=== PATIENT | male | born 1950 | race African-American/Black ===

== ENCOUNTER 2019-08-16 11:54 | Inpatient (IN) | payer OTHER ==
--- NOTE | 2019-08-16 14:05 | HP ---
CIWA Score Nausea/Vomitin-No Nausea/No Vomiting Muscle Tremors: 2 Anxiety: 3 Agitation: 4-Moderately Restless Paroxysmal Sweats: No Perspiration Orientation: 1-Uncertain about Date Tacttile Disturbances: 0-None Auditory Disturbances: 0-None Visual Disturbances: 0-None Headache: 0-None Present CIWA-Ar Total Score: 10 - Admission Criteria OASAS Guidelines: Admission for Medically Managed Detox: Requires at least one of the followin. CIWA greater than 12 2. Seizures within the past 24 hours 3. Delirium tremens within the past 24 hours 4. Hallucinations within the past 24 hours 5. Acute intervention needed for co occurring medical disorder 6. Acute intervention needed for co occurring psychiatric disorder 7. Severe withdrawal that cannot be handled at a lower level of care (continued vomiting, continued diarrhea, abnormal vital signs) requiring intravenous medication and/or fluids 8. Admission ROS [facility] Allergies/Adverse Reactions: Allergies Allergy/AdvReac Type Severity Reaction Status Date / Time No Known Allergies Allergy Verified 08/16/19 13:09 History of Present Illness: This report was requested by: Norma Curry | Reference #: [id number] Others' Prescriptions Patient Name: Mehrdad Harry Date: 1950 Address: [address] [place] [address] Sex: Male Rx Written Rx Dispensed Drug Quantity Days Supply Prescriber Name 07/31/2019 07/31/2019 oxycodone hcl 10 mg tablet 90 30 KapoorJamey weinberg MD 06/29/2019 06/29/2019 oxycodone hcl 10 mg tablet 90 30 KapoorJamey MD 05/27/2019 05/27/2019 oxycodone hcl 10 mg tablet 90 30 KapoorJamey MD 04/29/2019 04/29/2019 oxycodone hcl 10 mg tablet 90 30 KapoorJamey MD 03/30/2019 03/30/2019 oxycodone hcl 10 mg tablet 90 30 KapoorJamey MD 02/25/2019 03/16/2019 oxycodone hcl 10 mg tablet 90 30 KapoorJamey MD 01/28/2019 01/28/2019 oxycodone hcl 10 mg tablet 90 30 KapoorJamey MD 11/28/2018 11/28/2018 oxycodone hcl 10 mg tablet 90 30 Kapoor, Jamey MD 10/27/2018 10/27/2018 oxycodone hcl 10 mg tablet 90 30 Jamey Kapoor MD 09/29/2018 09/29/2018 oxycodone hcl 10 mg tablet 90 30 Jamey Kapoor MD 08/27/2018 08/27/2018 oxycodone hcl 10 mg tablet 90 30 Jamey Kapoor MD pt here requesting detox from etoh use , reports 2 pints/ day since age 17 , denies significant period of sobriety. denies seizures, blackouts, reports tremors . 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 Claims latest etoh use was this morning . States he went to [facility] for detox and was told no beds available and was referred to this facility. cocaine : 200 $ /day tobacco: 1 ppd pmhx : DM , htn, gout " can't you read ? it's in my record " Exam Limitations: Clinical Condition - Ebola screening Have you traveled outside of the country in the last 21 days: No (NN) Have you had contact with anyone from an Ebola affected area: No - Review of Systems Constitutional: No Symptoms Reported EENT: reports: No Symptoms Reported Respiratory: reports: No Symptoms reported Cardiac: reports: No Symptoms Reported GI: reports: Constipated, Diarrhea : reports: No Symptoms Reported Musculoskeletal: reports: No Symptoms Reported, Other (DENIES PAIN) Integumentary: reports: No Symptoms Reported Neuro: reports: No Symptoms reported Endocrine: reports: See HPI Psychiatric: reports: Orientated x3, Agitated, Anxious, other (beligerant , hostile) Patient History - Smoking Cessation Smoking history: Current every day smoker Have you smoked in the past 12 months: Yes Initiated information on smoking cessation: No - Substances abused Alcohol Substance route: Oral Frequency: Daily Amount used: 2 PINTS OF VODKA Age of first use: 17 Date of last use: 08/16/19 Barbiturate Substance route: Oral Frequency: Daily Amount used: 7- PILLS Age of first use: 17 Date of last use: 08/16/19 Marijuana/Hashish Substance route: Smoking Frequency: Daily Amount used: 1 JOINT Age of first use: 17 Date of last use: 08/14/19 Cocaine Substance route: Inhalation Frequency: Daily Amount used: 2 GRAMS Age of first use: 19 Date of last use: 08/16/19 Admission Physical Exam BHS - Vital Signs Vital Signs: Vital Signs - 24 hr 08/16/19 13:11 Temperature 99.4 F Pulse Rate 102 H Respiratory 18 Rate Blood Pressure 136/93 - Physical General Appearance: Yes: Irritable, Anxious HEENTM: Yes: EOMI, Hearing grossly Normal, Normocephalic, Normal Voice Respiratory: Yes: Chest Non-Tender, Lungs Clear, Normal Breath Sounds, No Respiratory Distress, No Accessory Muscle Use Neck: Yes: No masses,lesions,Nodules, Trachea in good position Cardiology: Yes: Regular Rhythm, Regular Rate, S1, S2 Abdominal: Yes: Non Tender, Soft Musculoskeletal: Yes: Gait Steady Extremities: Yes: Non-Tender, Tremors, Swelling (R hand - chronic intermittent ( gout )) Neurological: Yes: Alert, Motor Strength 5/5 Integumentary: Yes: Warm - Diagnostic (1) Alcohol abuse Current Visit: Yes Status: Chronic (2) Cocaine abuse Current Visit: Yes Status: Chronic (3) Nicotine dependence Current Visit: Yes Status: Chronic Qualifiers: Nicotine product type: cigarettes Breathalyzer - Breathalyzer Breathalyzer: 0 Urine Drug Screen - Test Device Lot number: [id number] Expiration date: 02/25/21 - Control Is test valid?: Yes - Results Drug screen NEGATIVE: No Urine drug screen results: [facility]-Cocaine Inpatient Rehab Admission - Rehab Decision to Admit Inpatient rehab admission?: No
[2019-08-16] MEDS ORDERED: MAG HYDROX/AL HYDROX/SIMETH 30 ML UNIT-DOSE CUP PO PRN (14:29)
[2019-08-16] MEDS ORDERED: ACETAMINOPHEN 325 MG TABLET (FP) PO PRN (14:29)
[2019-08-16] MEDS ORDERED: BISMUTH SUBSALICYLATE 524 MG/30 ML UD PO PRN (14:29)
[2019-08-16] MEDS ORDERED: IBUPROFEN 400 MG TABLET (FP) PO PRN (14:29)
[2019-08-16] MEDS ORDERED: MENTHOL/PHENOL 1 EACH UD MM PRN (14:29)
[2019-08-16] MEDS ORDERED: MAGNESIUM HYDROX 2400MG/30ML ORAL SUSPENSION 30 ML CUP PO PRN (14:29)
[2019-08-16] MEDS ORDERED: MAGNESIUM CITRATE 300 ML BOTTLE PO PRN (14:29)
[2019-08-16] MEDS ORDERED: hydrOXYzine PAMOATE 25 MG CAPSULE (FP) PO PRN (14:29)
[2019-08-16] MEDS ORDERED: diazePAM 5 MG TABLET PO PRN (14:33)
[2019-08-16 14:54] VITALS: BMI 26.7
[2019-08-16] MEDS: diazePAM 5 MG TABLET PO SCH ×2 (15:24→22:32)
[2019-08-16] MEDS: NICOTINE 14 MG/24 HOURS TOPICAL PATCH TD SCH (15:27)
[2019-08-16] MEDS: MELATONIN 5 MG TABLETS PO PRN (22:33)
[2019-08-16] MEDS: THIAMINE HCL 100 MG TABLET (FP) PO SCH (22:33)
[2019-08-17] MEDS: diazePAM 5 MG TABLET PO SCH ×3 (05:48→22:13)
[2019-08-17] MEDS: PRENATAL VITAMINS W/ FOLIC ACID TABLET (FP) PO SCH (10:24)
[2019-08-17] MEDS: COLCHICINE 0.6 MG CAP PO SCH (10:24)
[2019-08-17] MEDS: NICOTINE 14 MG/24 HOURS TOPICAL PATCH TD SCH (10:25)
[2019-08-17 12:32] LABS: HEMATOCRIT 36.8 % (35.4-49); HEMOGLOBIN 11.9 GM/dL (11.7-16.9); MCHC 32.3 g/dl (32.0-35.9); MEAN CELL VOLUME 92.9 fl (80-96); PLATELET COUNT 210 K/MM3 (134-434); RBC 3.96 M/mm3 (4.00-5.60); RDW 14.5 % (11.9-15.9); WHITE BLOOD COUNT 5.3 K/mm3 (4.0-10.0)
[2019-08-17 12:36] LABS: ALBUMIN 3.2 g/dl (3.4-5.0); BILIRUBIN,TOTAL 0.2 mg/dL (0.2-1); BLOOD UREA NITROGEN 12.3 mg/dL (7-18); CREATININE 1.2 mg/dL (0.55-1.3); POTASSIUM 3.7 mmol/L (3.5-5.1); TOT PROT 6.8 g/dl (6.4-8.2)
--- NOTE | 2019-08-17 12:47 | PN ---
[facility] CIWA - CIWA Score Nausea/Vomitin-Mild Nausea/No Vomiting Muscle Tremors: 3 Anxiety: 3 Agitation: 2 Paroxysmal Sweats: 2 Orientation: 0-Oriented Tacttile Disturbances: 0-None Auditory Disturbances: 0-None Visual Disturbances: 0-None Headache: 1-Very Mild CIWA-Ar Total Score: 12 S Progress Note (SOAP) Subjective: 68 years old male admitted on 08/16/19 for alcohol withdrawal sx management treating with valium detox regimen ate breakfast and lunch in day room social with peers in day room Objective: 08/17/19 12:49 Vital Signs Temperature 98.3 F 08/17/19 09:13 Pulse Rate 89 08/17/19 09:13 Respiratory Rate 18 08/17/19 09:13 Blood Pressure 121/73 08/17/19 09:13 O2 Sat by Pulse Oximetry (%) Laboratory Last Values WBC 5.3 K/mm3 (4.0-10.0) 08/17/19 07:25 RBC 3.96 M/mm3 (4.00-5.60) L 08/17/19 07:25 Hgb 11.9 GM/dL (11.7-16.9) 08/17/19 07:25 Hct 36.8 % (35.4-49) 08/17/19 07:25 MCV 92.9 fl (80-96) 08/17/19 07:25 MCH 30.0 pg (25.7-33.7) 08/17/19 07:25 MCHC 32.3 g/dl (32.0-35.9) 08/17/19 07:25 RDW 14.5 % (11.9-15.9) 08/17/19 07:25 Plt Count 210 K/MM3 (134-434) 08/17/19 07:25 MPV 9.0 fl (7.5-11.1) 08/17/19 07:25 Sodium 138 mmol/L (136-145) 08/17/19 07:25 Potassium 3.7 mmol/L (3.5-5.1) 08/17/19 07:25 Chloride 106 mmol/L (98-107) 08/17/19 07:25 Carbon Dioxide 28 mmol/L (21-32) 08/17/19 07:25 Anion Gap 5 MMOL/L (8-16) L 08/17/19 07:25 BUN 12.3 mg/dL (7-18) 08/17/19 07:25 Creatinine 1.2 mg/dL (0.55-1.3) 08/17/19 07:25 Est GFR (CKD-EPI)AfAm 72.09 08/17/19 07:25 Est GFR (CKD-EPI)NonAf 62.20 08/17/19 07:25 POC Glucometer 115 UNITS (80-120) 08/17/19 05:47 Random Glucose 150 mg/dL (74-106) H 08/17/19 07:25 Calcium 9.0 mg/dL (8.5-10.1) 08/17/19 07:25 Total Bilirubin 0.2 mg/dL (0.2-1) 08/17/19 07:25 AST 34 U/L (15-37) 08/17/19 07:25 ALT 30 U/L (13-61) 08/17/19 07:25 Alkaline Phosphatase 162 U/L (45-117) H 08/17/19 07:25 Total Protein 6.8 g/dl (6.4-8.2) 08/17/19 07:25 Albumin 3.2 g/dl (3.4-5.0) L 08/17/19 07:25 RPR Titer Nonreactive (NONREACTIVE) 08/17/19 07:25 lab noted Assessment: 08/17/19 12:49 alcohol withdrawal Plan: valium regimen
[2019-08-17] MEDS: THIAMINE HCL 100 MG TABLET (FP) PO SCH (22:13)
[2019-08-17] MEDS: MELATONIN 5 MG TABLETS PO PRN (22:13)
[2019-08-18] MEDS: ACETAMINOPHEN 325 MG TABLET (FP) PO PRN ×2 (05:46→17:33)
[2019-08-18] MEDS ORDERED: diazePAM 5 MG TABLET PO ONE (06:00)
[2019-08-18] MEDS: PRENATAL VITAMINS W/ FOLIC ACID TABLET (FP) PO SCH (10:05)
[2019-08-18] MEDS: COLCHICINE 0.6 MG CAP PO SCH (10:05)
[2019-08-18] MEDS: NICOTINE 14 MG/24 HOURS TOPICAL PATCH TD SCH (10:05)
[2019-08-18] MEDS ORDERED: diazePAM 5 MG TABLET PO PRN (10:23)
--- NOTE | 2019-08-18 10:32 | PN ---
S CIWA - CIWA Score Nausea/Vomitin-No Nausea/No Vomiting Muscle Tremors: 1-None Visible, but [place] Anxiety: 2 Agitation: 1-Slight > Activity Paroxysmal Sweats: 2 Orientation: 0-Oriented Tacttile Disturbances: 0-None Auditory Disturbances: 0-None Visual Disturbances: 0-None Headache: 1-Very Mild CIWA-Ar Total Score: 7 S Progress Note (SOAP) Subjective: 68 years old male admitted on 08/16/19 for alcohol withdrawal sx management treating with valium detox regiment feeling ok today ate breakfast resting in bed encourage to attend behavioral and psychosocial therapies groups and meetings while in detox Objective: 08/18/19 10:31 Vital Signs Temperature 98.4 F 08/18/19 09:20 Pulse Rate 61 08/18/19 09:20 Respiratory Rate 16 08/18/19 09:20 Blood Pressure 135/79 08/18/19 09:20 O2 Sat by Pulse Oximetry (%) Laboratory Last Values WBC 5.3 K/mm3 (4.0-10.0) 08/17/19 07:25 RBC 3.96 M/mm3 (4.00-5.60) L 08/17/19 07:25 Hgb 11.9 GM/dL (11.7-16.9) 08/17/19 07:25 Hct 36.8 % (35.4-49) 08/17/19 07:25 MCV 92.9 fl (80-96) 08/17/19 07:25 MCH 30.0 pg (25.7-33.7) 08/17/19 07:25 MCHC 32.3 g/dl (32.0-35.9) 08/17/19 07:25 RDW 14.5 % (11.9-15.9) 08/17/19 07:25 Plt Count 210 K/MM3 (134-434) 08/17/19 07:25 MPV 9.0 fl (7.5-11.1) 08/17/19 07:25 Sodium 138 mmol/L (136-145) 08/17/19 07:25 Potassium 3.7 mmol/L (3.5-5.1) 08/17/19 07:25 Chloride 106 mmol/L (98-107) 08/17/19 07:25 Carbon Dioxide 28 mmol/L (21-32) 08/17/19 07:25 Anion Gap 5 MMOL/L (8-16) L 08/17/19 07:25 BUN 12.3 mg/dL (7-18) 08/17/19 07:25 Creatinine 1.2 mg/dL (0.55-1.3) 08/17/19 07:25 Est GFR (CKD-EPI)AfAm 72.09 08/17/19 07:25 Est GFR (CKD-EPI)NonAf 62.20 08/17/19 07:25 POC Glucometer 126 UNITS (80-120) 08/18/19 05:44 Random Glucose 150 mg/dL (74-106) H 08/17/19 07:25 Calcium 9.0 mg/dL (8.5-10.1) 08/17/19 07:25 Total Bilirubin 0.2 mg/dL (0.2-1) 08/17/19 07:25 AST 34 U/L (15-37) 08/17/19 07:25 ALT 30 U/L (13-61) 08/17/19 07:25 Alkaline Phosphatase 162 U/L (45-117) H 08/17/19 07:25 Total Protein 6.8 g/dl (6.4-8.2) 08/17/19 07:25 Albumin 3.2 g/dl (3.4-5.0) L 08/17/19 07:25 RPR Titer Nonreactive (NONREACTIVE) 08/17/19 07:25 lab noted Assessment: 08/18/19 10:32 alcohol withdrawal Plan: valium regimen
[2019-08-18] MEDS: THIAMINE HCL 100 MG TABLET (FP) PO SCH (21:58)
[2019-08-18] MEDS: MELATONIN 5 MG TABLETS PO PRN (22:00)
[2019-08-19] MEDS ORDERED: metFORMIN HCL 500 MG TABLET (FP) PO SCH (07:00)
[2019-08-19 09:12] VITALS: BP 142/86; PULSE 62; TEMP 96.6
[2019-08-19] MEDS: NICOTINE 14 MG/24 HOURS TOPICAL PATCH TD SCH (10:24)
[2019-08-19] MEDS: PRENATAL VITAMINS W/ FOLIC ACID TABLET (FP) PO SCH (10:24)
[2019-08-19] MEDS: COLCHICINE 0.6 MG CAP PO SCH (10:24)
--- NOTE | 2019-08-19 10:28 | DS ---
[facility] Detox Discharge Summary Admission Date: 08/16/19 Discharge Date: 08/19/19 - History Present History: Alcohol Dependence Additional Comments: 68 years old male admitted on 08/16/19 for alcohol withdrawal sx management treated with valium detox regimen patient has completed valium regimen and tolerated well alert oriented x 3 respiratory clear lungs bilaterally on auscultation skin warm and dry abdomen soft no rebound tenderness - Physical Exam Results Vital Signs: Vital Signs Temperature 96.6 F L 08/19/19 09:11 Pulse Rate 62 08/19/19 09:11 Respiratory Rate 18 08/19/19 09:11 Blood Pressure 142/86 08/19/19 09:11 O2 Sat by Pulse Oximetry (%) Pertinent Admission Physical Exam Findings: alcohol withdrawal Laboratory Last Values WBC 5.3 K/mm3 (4.0-10.0) 08/17/19 07:25 RBC 3.96 M/mm3 (4.00-5.60) L 08/17/19 07:25 Hgb 11.9 GM/dL (11.7-16.9) 08/17/19 07:25 Hct 36.8 % (35.4-49) 08/17/19 07:25 MCV 92.9 fl (80-96) 08/17/19 07:25 MCH 30.0 pg (25.7-33.7) 08/17/19 07:25 MCHC 32.3 g/dl (32.0-35.9) 08/17/19 07:25 RDW 14.5 % (11.9-15.9) 08/17/19 07:25 Plt Count 210 K/MM3 (134-434) 08/17/19 07:25 MPV 9.0 fl (7.5-11.1) 08/17/19 07:25 Sodium 138 mmol/L (136-145) 08/17/19 07:25 Potassium 3.7 mmol/L (3.5-5.1) 08/17/19 07:25 Chloride 106 mmol/L (98-107) 08/17/19 07:25 Carbon Dioxide 28 mmol/L (21-32) 08/17/19 07:25 Anion Gap 5 MMOL/L (8-16) L 08/17/19 07:25 BUN 12.3 mg/dL (7-18) 08/17/19 07:25 Creatinine 1.2 mg/dL (0.55-1.3) 08/17/19 07:25 Est GFR (CKD-EPI)AfAm 72.09 08/17/19 07:25 Est GFR (CKD-EPI)NonAf 62.20 08/17/19 07:25 POC Glucometer 104 UNITS (80-120) 08/19/19 05:22 Random Glucose 150 mg/dL (74-106) H 08/17/19 07:25 Calcium 9.0 mg/dL (8.5-10.1) 08/17/19 07:25 Total Bilirubin 0.2 mg/dL (0.2-1) 08/17/19 07:25 AST 34 U/L (15-37) 08/17/19 07:25 ALT 30 U/L (13-61) 08/17/19 07:25 Alkaline Phosphatase 162 U/L (45-117) H 08/17/19 07:25 Total Protein 6.8 g/dl (6.4-8.2) 08/17/19 07:25 Albumin 3.2 g/dl (3.4-5.0) L 08/17/19 07:25 RPR Titer Nonreactive (NONREACTIVE) 08/17/19 07:25 lab noted - Treatment Hospital Course: Detox Protocol Followed, Detoxed Safely, Responded well, Discharged Condition Good, Rehab Referral Accepted Patient has Accepted a Rehab Referral to: [facility] chemical dependent rehab - Medication Discharge Medications: Ambulatory Orders Colchicine [Colcrys] 0.6 mg PO DAILY 08/16/19 metFORMIN HCL [Metformin HCl] 1,000 mg PO BID 08/18/19 - Diagnosis (1) Alcohol dependence, uncomplicated Status: Acute (2) Gout Status: Chronic Qualifiers: Gout site: multiple sites Gout etiology: drug-induced Chronicity: chronic Presence of tophus: without tophus Qualified Code(s): M1A.29X0 - Drug-induced chronic gout, multiple sites, without tophus (tophi) (3) Diabetes mellitus type II, controlled, with no complications Status: Chronic Qualifiers: Diabetes mellitus half-way insulin use: without half-way use Qualified Code(s): E11.9 - Type 2 diabetes mellitus without complications (4) Nicotine dependence Status: Acute Qualifiers: Nicotine product type: cigarettes Substance use status: in withdrawal Qualified Code(s): F17.213 - Nicotine dependence, cigarettes, with withdrawal - AMA Did Patient Leave Against Medical Advice: No CIWA Score - CIWA Score Nausea/Vomitin-No Nausea/No Vomiting Muscle Tremors: 1-None Visible, but [place] Anxiety: 2 Agitation: 1-Slight > Activity Paroxysmal Sweats: 2 Orientation: 0-Oriented Tacttile Disturbances: 0-None Auditory Disturbances: 0-None Visual Disturbances: 0-None Headache: 1-Very Mild CIWA-Ar Total Score: 7
== END 2019-08-19 13:39 | disposition home or self-care (01) | DRG 897 ==
LOC: YASAS 11:54 → Y3N 14:28
PROVIDERS: ADMIT Allergy & Immunology; ATTEND Allergy & Immunology
PROC: HZ2ZZZZ Detoxification Services for Substance Abuse Treatment (ICD-10-PCS; principal; 2019-08-16)
DX: F10.230 Alcohol dependence with withdrawal, uncomplicated (principal); F13.20 Sedative, hypnotic or anxiolytic dependence, uncomplicated; F14.20 Cocaine dependence, uncomplicated; F12.20 Cannabis dependence, uncomplicated; F17.210 Nicotine dependence, cigarettes, uncomplicated; E11.9 Type 2 diabetes mellitus without complications; Z79.84 Long term (current) use of oral hypoglycemic drugs; M1A.29X0 Drug-induced chronic gout, multiple sites, without tophus (tophi)
CPT/HCPCS: 36415; 80053; 82962; 85027; 86593